=== PATIENT | male | born 1990 | race Caucasian/White ===

== ENCOUNTER → 2017-11-04 | Outpatient (CLI) | payer BC ==
[~2017-11-04] MED LIST: LAMO150T PO
--- NOTE | 2017-11-04 11:56 | EEG Procedure Note ---
EEG Procedure Note Date of Service Nov 04, 2017. Start / End Times Start Time: 10:32 AM End Time: 10:53 AM Referring Physician Mack Dietz History This is a 27-year-old male with reported history of seizure disorder. EEG for further evaluation of epilepsy. Home Medication List Scheduled Lamotrigine (Lamictal), 375 MG PO BID Lamotrigine (Lamictal), 150 MG PO DIRECTED Description This is a 21 electrode EEG with a single channel dedicated to limited EKG. The electrodes were placed in accordance with the International 10-20 system. At the start of the recording the patient was in an awake state. Background was well organized and composed of symmetric mixed alpha and beta frequencies. There was a symmetric well-formed moderate amplitude 8-9Hz posterior dominant rhythm that was reactive to eye opening and closure. Hyperventilation was not done. Intermittent photic stimulation at various frequencies produced no abnormalities. Drowsiness was indicated by loss of muscle artifact and slowing of the background rhythm with vertex waves. There was no stage II sleep transients. Interpretation This is a normal awake and drowsy routine EEG. There was no electrographic seizures or epileptiform discharges. Clinical Correlation A normal EEG does not rule out epilepsy if there is a strong clinical suspicion.
== END | disposition home or self-care (01) ==
LOC: C.NEUR 10:15
PROVIDERS: ATTEND Psychiatry & Neurology Neurology
DX: Z51.81 Encounter for therapeutic drug level monitoring (principal); G40.909 Epilepsy, unspecified, not intractable, without status epilepticus